=== PATIENT | male | born 1995 | race Caucasian/White ===

== ENCOUNTER 2017-02-27 16:39 | Emergency (ER) | payer OTHER ==
--- NOTE | 2017-02-27 17:00 | ED ---
General Adult HPI - General Chief complaint: Eye Problems Stated complaint: Visual Disturbance/Vomiting Blood Time Seen by Provider: 02/27/17 17:00 Source: patient, RN notes reviewed, old records reviewed Mode of arrival: ambulatory Limitations: no limitations - History of Present Illness Initial comments: This is a 21-year-old male to the ER for evaluation. Patient does state for evaluation of left eye pain. Multiple left eye issues lately. Patient was diagnosed with herpetic conjunctivitis of left eye. Denies any specific vision changes at this time but is been having consistent eye pain. 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 Patient stated proptosis a few days ago. That seemed to be better, is currently on acyclovir. Patient denies any other complaints. She has been doing without issues for about a month - Related Data Home Medications Medication Instructions Recorded Confirmed Ciprofloxacin Ophth Soln [Cipro 1 - 2 drops LEFT EYE DAILY 02/27/17 02/27/17 Ophth Soln] Erythromycin Ophth Oint [Romycin 1 - 2 applic LEFT EYE DAILY 02/27/17 02/27/17 Ophth Oint] Naproxen Sodium [Aleve] 440 mg PO BID PRN 02/27/17 02/27/17 Pseudoephedrine HCl [Sudafed] 30 mg PO Q4HR PRN 02/27/17 02/27/17 Allergies Allergy/AdvReac Type Severity Reaction Status Date / Time acyclovir Allergy Vomiting Verified 02/27/17 17:05 amoxicillin Allergy Nausea & Verified 02/27/17 17:05 Vomiting cephalexin [From Keflex] Allergy Unknown Verified 02/27/17 17:05 erythromycin base Allergy Unknown Verified 02/27/17 17:05 acetaminophen AdvReac Unknown Verified 02/27/17 17:05 Review of Systems ROS Statement: Those systems with pertinent positive or pertinent negative responses have been documented in the HPI. ROS Other: All systems not noted in ROS Statement are negative. Past Medical History Past Medical History: Hypertension History of Any Multi-Drug Resistant Organisms: None Reported Additional Past Surgical History / Comment(s): oral surgery Past Psychological History: Bipolar Smoking Status: Current every day smoker Past Alcohol Use History: Occasional Past Drug Use History: None Reported General Exam Limitations: no limitations General appearance: alert, in no apparent distress Head exam: Present: atraumatic, normocephalic, normal inspection Eye exam: Present: normal appearance, PERRL, EOMI, other (Left eye conjunctivitis). Absent: scleral icterus, conjunctival injection, periorbital swelling ENT exam: Present: normal exam, mucous membranes moist Neck exam: Present: normal inspection. Absent: tenderness, meningismus, lymphadenopathy Respiratory exam: Present: normal lung sounds bilaterally. Absent: respiratory distress, wheezes, rales, rhonchi, stridor Cardiovascular Exam: Present: regular rate, normal rhythm, normal heart sounds. Absent: systolic murmur, diastolic murmur, rubs, gallop, clicks GI/Abdominal exam: Present: soft, normal bowel sounds. Absent: distended, tenderness, guarding, rebound, rigid Extremities exam: Present: normal inspection, full ROM, normal capillary refill. Absent: tenderness, pedal edema, joint swelling, calf tenderness Back exam: Present: normal inspection Neurological exam: Present: alert, oriented X3, CN II-XII intact Psychiatric exam: Present: normal affect, normal mood Skin exam: Present: warm, dry, intact, normal color. Absent: rash Course Vital Signs 02/27/17 02/27/17 16:49 20:45 Temperature 97.8 F 98.1 F Pulse Rate 75 57 L Respiratory 15 18 Rate Blood Pressure 147/76 157/70 O2 Sat by Pulse 97 100 Oximetry Medical Decision Making - Medical Decision Making 18 female the ER with left eye pain, patient was able receive MRI in the ER today, showing no orbital cellulitis, patient still with herpetic conjunctivitis , patient will continue to follow up with ophthalmology, patient refuses to stay for results of MRI, patient signed out AGAINST MEDICAL ADVICE - Radiology Data Radiology results: report reviewed (MR orbits is pending), image reviewed Disposition Clinical Impression: Left eye pain Disposition: Left Against Medical Advice Condition: Undetermined Instructions: Eye Pain (ED) Referrals: None,Stated [Primary Care Provider] - 1-2 days
[2017-02-27 21:02] VITALS: BP 157/70; PULSE 57; RESP 18; TEMP 98.1
--- NOTE | 2017-02-27 21:39 | MR ---
EXAMINATION TYPE: MR brain/orbits wo/w con DATE OF EXAM: 02/27/2017 COMPARISON: NONE. No prior examinations at this location. HISTORY: Visual disturbance, Lt orbital infection, checking to see extent; Multihance 15ml. No priors TECHNIQUE: Multiplanar, multisequence images of the brain and brainstem is performed without and with IV contras t, utilizing 15 mL intravenous MultiHance . FINDINGS: Diffusion-weighted imaging is performed. No abnormal hyperintensity is present to suggest ischemic ch anges. Signal within the brain appears normal with preservation of the ochoa-white matter interface. V entricles and sulci are appropriate for the patient age. Calvarium is normal absence of signal. Petrous ridges are normal. There are normal vascular flow void s within the visualized intracranial cerebral vasculature. Orbits appear symmetrical. Extraocular muscles appear normal. Intraconal and extraconal fat appears n ormal. Optic chiasm is unremarkable. Globes are symmetrical. Following contrast administration abnormal enhancement is not identified. Lacrimal glands appear symm etrical. There is some mild mucosal thickening without air-fluid levels within the ethmoid air cells. Paranasa l sinuses and mastoid air cells otherwise appear clear. Orbits appear symmetrical. The patient's reported left orbital infection is not well appreciated. No retrobulbar infection is identified. No suspicious changes of abnormal enhancement for phlegmon or ab scess is evident. Intraconal and extraconal fat appear symmetrical. IMPRESSION: 1. Patient's reported left orbital cellulitis is not well appreciated on this examination. No retrobu lbar infection is evident. 2. Normal pre and postcontrast MRI brain.
== END 2017-02-27 21:03 | disposition left against medical advice (07) ==
LOC: EC 16:39
DX: H57.12 Ocular pain, left eye (principal); F17.200 Nicotine dependence, unspecified, uncomplicated; Z88.0 Allergy status to penicillin; Z88.1 Allergy status to other antibiotic agents; Z88.6 Allergy status to analgesic agent; Z88.8 Allergy status to other drugs, medicaments and biological substances
CPT/HCPCS: 70543; 70553; 99284; A9577

== ENCOUNTER 2020-05-26 12:03 | Emergency (ER) | payer OTHER ==
[2020-05-26 12:09] VITALS: BP 146/83; PULSE 78; RESP 16; TEMP 98.2
--- NOTE | 2020-05-26 12:25 | ED ---
General Adult HPI - General Chief complaint: Extremity Injury, Upper Stated complaint: L hand Injury Time Seen by Provider: 05/26/20 12:11 Source: patient Mode of arrival: ambulatory Limitations: no limitations - History of Present Illness Initial comments: Dictation was produced using [employer] dictation software. please excuse any grammatical, word or spelling errors. This patient was cared for during a federal and state declared state of emergency secondary to Covid 19 Chief Complaint: 24-year-old male with past medical history of hypertension presents with left hand pain. History of Present Illness: 24-year-old male presents today with left hand pain. He was out at a [employer] for one of his family members last night. He reports at the time of injury he was inebriated and does not recall all the details of how he injured his hand. Patient believes that he tripped over his family members wean her dog. He then struck the dorsum of his left hand on a metal dumpster. Patient complains of pain to the left dorsal medial portion of the hand. He does complain of pain with palpation to the MCP area. There is pain is elicited with flexion at the MCP joint of the fourth and fifth digit. The ROS documented in this emergency department record has been reviewed and confirmed by me. Those systems with pertinent positive or negative responses have been documented in the HPI. All other systems are other negative and/or noncontributory. PHYSICAL EXAM: General Impression: Alert and oriented x3, not in acute distress HEENT: Normocephalic atraumatic, extra-ocular movements intact, pupils equal and reactive to light bilaterally, mucous membranes moist. Cardiovascular: Heart regular rate and rhythm Chest: Able to complete full sentences, no retractions, no tachypnea Abdomen: abdomen soft, non-tender, non-distended, no organomegaly Musculoskeletal: Pulses present and equal in all extremities, no peripheral ed ron Left hand: Small superficial abrasion third and fourth MCP head, tenderness to palpation over the distal fourth and fifth MCP with mild swelling over top. Motor: no focal deficits noted Neurological: CN II-XII grossly intact, no focal motor or sensory deficits noted Skin: Intact with no visualized rashes Psych: Normal affect and mood ED course: 24-year-old male presents with left hand injury. Vital signs upon arrival are within acceptable limits. X-ray obtained showing fifth mildly displaced metatarsal distal fracture. Patient was placed in a ulnar gutter splint. Patient given outpatient referral to orthopedic surgery. Patient told to maintain the splint until he gets evaluated by orthopedic surgery. - Related Data Previous Rx's Medication Instructions Recorded Albuterol Sulfate [Proair Hfa] 1 - 2 puff INHALATION Q4HR PRN #1 08/17/17 inhaler Allergies Allergy/AdvReac Type Severity Reaction Status Date / Time acyclovir Allergy Vomiting Verified 05/26/20 12:09 amoxicillin Allergy Nausea & Verified 05/26/20 12:09 Vomiting cephalexin [From Keflex] Allergy Unknown Verified 05/26/20 12:09 erythromycin base Allergy Unknown Verified 05/26/20 12:09 acetaminophen AdvReac Unknown Verified 05/26/20 12:09 Review of Systems ROS Statement: Those systems with pertinent positive or pertinent negative responses have been documented in the HPI. ROS Other: All systems not noted in ROS Statement are negative. Past Medical History Past Medical History: Hypertension Additional Past Medical History / Comment(s): insomnia History of Any Multi-Drug Resistant Organisms: None Reported Past Surgical History: No Surgical Hx Reported Additional Past Surgical History / Comment(s): oral surgery Past Psychological History: Anxiety, Bipolar, Depression Smoking Status: Current every day smoker Past Alcohol Use History: Rare Past Drug Use History: Marijuana General Exam Limitations: no limitations Course Vital Signs 05/26/20 12:05 Temperature 98.2 F Pulse Rate 78 Respiratory 16 Rate Blood Pressure 146/83 O2 Sat by Pulse 97 Oximetry Procedures - Orthopedic Splinting/Casting Injury #1 Side: left Upper Extremity Injury Location: hand Upper Extremity Immobilizer: ulnar gutter Additional Comments: 5th mcp fracture Disposition Clinical Impression: Hand fracture, left Disposition: HOME SELF-CARE Condition: Good Instructions (If sedation given, give patient instructions): Hand Fracture (ED) Additional Instructions: Please follow up with orthopedic surgery next week. Take [id number] analgesics for pain control. You are to be non-weight bearing 1-year-old left hand. Please maintain splint until evaluated by surgery. Call number provided for appointment. Is patient prescribed a controlled substance at d/c from ED?: No Referrals: Prashant Batista DO [Medical Doctor] - 1-2 days Time of Disposition: 13:00
--- NOTE | 2020-05-26 12:56 | XR ---
EXAMINATION TYPE: XR hand complete LT DATE OF EXAM: 05/26/2020 CLINICAL HISTORY: Left hand pain from fall TECHNIQUE: Frontal, lateral and oblique images of the left hand are obtained. COMPARISON: None. FINDINGS: There is a comminuted, extra-articular, fracture of the left fifth metatarsal distal metad iaphysis with mild displacement and mild volar angulation. Adjacent soft tissue swelling of the ulnar hand. No evidence of dislocation. The joint spaces in the left hand appear within normal limits. Nor mal osseous mineralization. IMPRESSION: Mildly displaced extra-articular fracture of the fifth metatarsal distal metadiaphysis, w ith mild volar angulation.
== END 2020-05-26 13:06 | disposition home or self-care (01) ==
LOC: EC 12:03
DX: S62.327A Displaced fracture of shaft of fifth metacarpal bone, left hand, initial encounter for closed fracture (principal); S60.413A Abrasion of left middle finger, initial encounter; S60.415A Abrasion of left ring finger, initial encounter; F17.200 Nicotine dependence, unspecified, uncomplicated; Z88.0 Allergy status to penicillin; Z88.1 Allergy status to other antibiotic agents; Z88.8 Allergy status to other drugs, medicaments and biological substances; W01.198A Fall on same level from slipping, tripping and stumbling with subsequent striking against other object, initial encounter; Y93.89 Activity, other specified; Y92.89 Other specified places as the place of occurrence of the external cause
CPT/HCPCS: 29125; 99283

== ENCOUNTER 2021-09-25 12:59 | Emergency (ER) | payer BC, OTHER ==
[2021-09-25 13:23] VITALS: BP 134/90; PULSE 112; RESP 18; TEMP 102
[2021-09-25] MEDS ORDERED: IBUPROFEN 600 MG TAB PO STA (14:09)
--- NOTE | 2021-09-25 14:38 | ED ---
General Adult HPI - General Chief complaint: Upper Respiratory Infection Stated complaint: Covid Swab Time Seen by Provider: 09/25/21 13:55 Source: patient, RN notes reviewed Mode of arrival: ambulatory Limitations: no limitations - History of Present Illness Initial comments: 26-year-old male presents emergency Department with chief complaint of fever c hills cough and congestion. Patient states started overnight. Patient has diffuse bodyaches she has not taken any recent Tylenol Motrin. Patient states he has no shortness breath currently no diarrhea he states he had some posttussive emesis. Patient denies any other complaints. - Related Data Previous Rx's Medication Instructions Recorded Albuterol Sulfate [Proair Hfa] 1 - 2 puff INHALATION Q4HR PRN #1 08/17/17 inhaler Allergies Allergy/AdvReac Type Severity Reaction Status Date / Time acyclovir Allergy Vomiting Verified 09/25/21 13:19 amoxicillin Allergy Nausea & Verified 09/25/21 13:19 Vomiting cephalexin [From Keflex] Allergy Unknown Verified 09/25/21 13:19 erythromycin base Allergy Unknown Verified 09/25/21 13:19 acetaminophen AdvReac Unknown Verified 05/26/20 12:09 Review of Systems ROS Statement: Those systems with pertinent positive or pertinent negative responses have been documented in the HPI. ROS Other: All systems not noted in ROS Statement are negative. Past Medical History Past Medical History: Hypertension Additional Past Medical History / Comment(s): insomnia History of Any Multi-Drug Resistant Organisms: None Reported Past Surgical History: No Surgical Hx Reported Additional Past Surgical History / Comment(s): oral surgery, R hand Past Psychological History: Anxiety, Bipolar, Depression Smoking Status: Current every day smoker Past Alcohol Use History: None Reported Past Drug Use History: None Reported General Exam Limitations: no limitations General appearance: alert, in no apparent distress Head exam: Present: atraumatic, normocephalic, normal inspection Eye exam: Present: normal appearance, PERRL, EOMI. Absent: scleral icterus, conjunctival injection, periorbital swelling ENT exam: Present: mucous membranes moist Neck exam: Present: normal inspection, full ROM. Absent: tenderness, meningismus, lymphadenopathy Respiratory exam: Present: normal lung sounds bilaterally. Absent: respiratory distress, wheezes, rales, rhonchi, stridor Cardiovascular Exam: Present: normal rhythm, tachycardia, normal heart sounds. Absent: systolic murmur, diastolic murmur, rubs, gallop, clicks GI/Abdominal exam: Present: soft, normal bowel sounds. Absent: distended, tenderness, guarding, rebound, rigid Course Vital Signs 09/25/21 13:20 Temperature 102 F H Pulse Rate 112 H Respiratory 18 Rate Blood Pressure 134/90 O2 Sat by Pulse 96 Oximetry Medical Decision Making - Medical Decision Making Patient is COVID-19 positive. Patient's no signs of distress or be discharged stable condition patient recommended to [place] vitamins, Tylenol or Motrin as directed return parameters were discussed. - Lab Data Lab Results 09/25/21 Range/Units 13:26 Coronavirus (PCR) Detected A (Not Detectd) Disposition Clinical Impression: COVID-19 Disposition: HOME SELF-CARE Condition: Stable Instructions (If sedation given, give patient instructions): Coronavirus Disease 2019 (COVID-19) Additional Instructions: Please return to the Emergency Department if symptoms worsen or any other concerns. Is patient prescribed a controlled substance at d/c from ED?: No Referrals: None,Stated [Primary Care Provider] - 1-2 days Time of Disposition: 14:37
== END 2021-09-25 14:51 | disposition home or self-care (01) ==
LOC: EC 12:59
DX: U07.1 COVID-19 (principal); F41.9 Anxiety disorder, unspecified; F31.9 Bipolar disorder, unspecified; F17.200 Nicotine dependence, unspecified, uncomplicated; I10 Essential (primary) hypertension
CPT/HCPCS: 87635; 99283

== ENCOUNTER → 2022-07-09 | Outpatient (CLI) | payer OTHER ==
--- NOTE | 2022-07-09 12:43 | XR ---
EXAMINATION TYPE: XR lumbar spine 2 or 3V DATE OF EXAM: 07/09/2022 CLINICAL HISTORY: Low back pain. TECHNIQUE: Frontal and lateral images of the lumbar spine are obtained. COMPARISON: None FINDINGS: There are 5 lumbar type vertebral bodies identified. The lumbar spine shows satisfactory alignment without evidence of acute fracture or dislocation. Mild disc space narrowing L5-S1 level ot herwise vertebral body heights and disk space heights are within normal limits. Spina bifida defect S 1 level. The overlying soft tissue appears unremarkable. IMPRESSION: As above.
== END | disposition home or self-care (01) ==
LOC: RADXRMAIN 12:17
PROVIDERS: ATTEND Emergency Medicine
DX: S39.012A Strain of muscle, fascia and tendon of lower back, initial encounter (principal)
CPT/HCPCS: 72100